=== PATIENT | female | born 1940 | race Caucasian/White ===

== ENCOUNTER 2017-08-05 13:57 | Emergency (ER) | payer OTHER ==
[2017-08-05 14:05] VITALS: RESP 16
--- NOTE | 2017-08-05 15:34 | EDPHY ---
HPI/HX/ROS/PE/MDM Narrative: CHIEF COMPLAINT: Cough HPI: This patient is a 77 year old female complaining of cough and malaise. She has history of walking pneumonia and her current symptoms feel similar to this. Her current symptoms began Tuesday, two days ago. She has a persistent cough which is occasionally productive, but has not noted any particular color of sputum. No hemoptysis. Her primary complaints other than cough are fatigue and malaise. The patient denies fever, chest pain, vomiting, diarrhea, or urinary complaints. She did not receive a flu shot this year. REVIEW OF SYSTEMS: Aside from elements discussed in the HPI, a comprehensive 10-point review of systems was reviewed and is negative. PMH: 1. History of migraines (Sumatriptan) 2. Hypothyroid (Levothyroxine) SOCIAL HISTORY: Daughter at bedside. . Retired. PHYSICAL EXAM: General:Patient is alert, in no acute distress. ENT:Eyes are normal to inspection. ENT inspection normal. Neck: Normal inspection. Full range of motion. Respiratory:No respiratory distress. Breath sounds normal bilaterally. Cardiovascular: Regular rate and rhythm. Strong peripheral pulses. Normal cap refill. Abdomen:The abdomen is nontender to palpation. There are no peritoneal signs. There are normal bowel sounds. Back: Normal to inspection. No tenderness to palpation. Skin: Normal color. No rash. Warm and dry. Extremities: Normal appearance. Full range of motion. Neuro: Oriented x3. Normal motor function. Normal sensory function. ED Course: 77 year old female presents with three day history of cough and malaise. Exam unremarkable, lungs clear to auscultation. She is afebrile here in the emergency department. Plan for flu swab, chest x-ray. Chest x-ray negative for pneumonia. Flu swab positive for influenza A. 16:10 Discussed results with patient. Plan to discharge home in good condition. Follow up and return precautions discussed. The patient is comfortable with this plan. MDM: This patient presents with cough and flu-like symptoms - CXR is negative for PNA and flu swab is positive. The patient is >72 hours into course of illness. I discussed option of Tamiflu despite this given her age, but patient declines treatment. We discussed supportive care and strict return precautions. The patient is currently quite comfortable, not hypoxic, and well- appearing. - Data Points Imaging Results: Imaging Impressions Chest X-Ray 12/29/17 15:13 Impression: No pneumonia. Suspect underlying COPD/emphysema. Laboratory Results: 08/05/17 15:15 Nasal Influenza A PCR FLU A DETECTED H (NEGATIVE) Nasal Influenza B PCR NEGATIVE FOR FLU B (NEGATIVE) General Time Seen by Provider: 08/05/17 15:12 Initial Vital Signs: Initial Vital Signs Temperature (C) 36.3 C 08/05/17 14:01 Heart Rate 80 08/05/17 14:01 Respiratory Rate 16 08/05/17 14:01 Blood Pressure 117/73 08/05/17 14:01 O2 Sat (%) 92 08/05/17 14:01 O2 Delivery Mode Room Air Allergies/Adverse Reactions: tranqualisers Allergy (Uncoded 08/05/17 14:06) Home Medications: Medication Instructions Recorded Levothyroxine 08/05/17 Sumatriptan 08/05/17 Departure - Departure Disposition: Home, Routine, Self-Care Clinical Impression: Influenza A Condition: Good Instructions: Hydrocodone/Acetaminophen (By mouth), Influenza (ED) Additional Instructions: 1. Use ibuprofen and Tylenol as needed for fever and body aches. 2. Follow up with your primary care physician in 2-3 days for reevaluation. 3. Drink plenty of fluids. 4. Return to the emergency department immediately for high fever, severe headache or neck pain, difficulty breathing, abdominal pain, rash or other worsening of condition. Referrals: Rhonda Morillo MD [Medical Doctor] - As per Instructions Report Scribed for: Kevin Freeman Report Scribed by: Jade Simmons Date of Report: 08/05/17 Time of Report: 15:34 Physician Review and Approval Statement: Portions of this note were transcribed by an ED scribe. I personally performed the history, physical exam, and medical decision making; and confirm the accuracy of the information in the transcribed note.
[2017-08-05 15:58] VITALS: TEMP 98.2
[2017-08-05 16:23] VITALS: BP 107/76; PULSE 74; O2SAT 94
[2017-08-05] MEDS ORDERED: HYDROCOD/APAP 5/325 PREPACK#6 BTL TAKEHOME ONE ×2 (16:25→16:26)
== END 2017-08-05 16:23 | disposition home or self-care (01) ==
DX: J10.1 Influenza due to other identified influenza virus with other respiratory manifestations (principal)